=== PATIENT | female | born 1955 | race Caucasian/White ===

== ENCOUNTER → 2016-03-12 | Outpatient (CLI) | payer OTHER ==
--- NOTE | 2016-03-12 17:15 | DX ---
Lumbar spine, 2 views History: Postoperative follow up. Comparison: Lumbar spine from January 30, 2016. 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 Levoscoliosis of the lumbar spine an d trace anterolisthesis of L3 on L4 are stable. Moderate to severe vertebral spondylosis at L5-S1 and mild vertebral spondylosis throughout the remainder of the lumbar spine are stable. Vertebral body h eights are preserved. Impression: Stable lumbar spine with L3 through L5 spinous clamps.
== END ==
LOC: FIMAGING 09:31
PROVIDERS: ATTEND Orthopaedic Surgery Orthopaedic Surgery of the Spine
DX: Z09 Encounter for follow-up examination after completed treatment for conditions other than malignant neoplasm (principal); M41.86 Other forms of scoliosis, lumbar region; M43.16 Spondylolisthesis, lumbar region; M47.896 Other spondylosis, lumbar region